=== PATIENT | female | born 1930 | race Caucasian/White ===

== ENCOUNTER 2016-12-11 21:02 | Inpatient (IN) | payer MEDICARE, BC ==
[2016-12-12] MEDS ORDERED: Docusate Sodium 100 MG Cap PO PRN (00:43)
[2016-12-12] MEDS ORDERED: Acetaminophen 325 MG Tab PO PRN (00:43)
[2016-12-12] MEDS ORDERED: Temazepam 15 MG Cap PO PRN (00:43)
[2016-12-12] MEDS ORDERED: Ondansetron 4 MG/2 ML SDV IV PRN (00:43)
[2016-12-12] MEDS ORDERED: Ondansetron 4 MG Tab.DIS PO PRN (00:43)
[2016-12-12] MEDS ORDERED: Ibuprofen 400 MG Tab PO PRN (00:43)
[2016-12-12] MEDS ORDERED: Levofloxacin/Dextrose 5%-Water 500 MG in Premix Bag 1 BAG IV SCH (01:00)
[2016-12-12] MEDS ORDERED: Sodium Chloride 0.9% 10 ML Syringe FLUSH PRN (02:24)
[2016-12-12] MEDS ORDERED: Sodium Chloride 0.9% 250 ML IV SCH (03:30)
[2016-12-12] MEDS: Enoxaparin 40 MG/0.4 ML Syringe SUBCUT SCH (09:43)
--- NOTE | 2016-12-12 10:47 | CR ---
INDICATION: Weakness, question infection in the lungs. CHEST: An AP portable upright view of the chest was obtained. Evidence of exogenous obesity is noted. The heart is enlarged. The current study is 12/12/2016. No comparisons are available. The aorta is tortuous and calcified. Dextroconcave scoliosis of moderate degree is noted in the mid thoracic spine with moderate hypertrophic degenerative changes off vertebral bodies. An active infiltrate or effusion was not identified. Lungs appear to be slightly hyperaerated. Linear density at the left lower lung field laterally may represent fibrotic strand or possibly linear atelectasis. Somewhat heavy markings at the medial lung bases, especially on the right make it difficult to exclude patchy bronchopneumonia. IMPRESSION: 1. No definite acute process, but difficult to exclude minimal patchy bronchopneumonia at the lung bases, especially at the right lung base. 2. ASHD with cardiomegaly. 3. Question the possibility of COPD. 4. Exogenous obesity. MTDD
[2016-12-12] MEDS: metFORMIN 500 MG Tab PO SCH ×2 (12:12→17:57)
[2016-12-12] MEDS ORDERED: Sodium Chloride 0.9% 1,000 ML IV SCH (12:45)
--- NOTE | 2016-12-12 14:06 | HP ---
ADMISSION DATE: 12/12/2016 CHIEF COMPLAINT: Fever, chills, marked weakness. HISTORY OF PRESENT ILLNESS: This patient is an 86-year-old female with a longstanding history of type 2 diabetes mellitus, currently without insulin therapy, complicated by chronic kidney disease, hypertension, obesity, and obstructive sleep apnea who was admitted after being seen in the emergency room with the above chief complaint. The patient states she was actually doing fairly well until last night when she was sitting in her chair and about 1900 hours, wanted to get out; she said she just could not get out of the chair. She says her legs were so weak, and she felt chilled and very warm. She called her daughter who went to check on her. They found her to be very weak and could barely stand. He got her to the car and brought her to the emergency room. She was found to be febrile with elevated white count and marked pyuria. She was too weak and somewhat dehydrated to go home. She was therefore admitted for more aggressive therapy. She says she has not had any previous problems with kidney infections, denies any fever, chills, night sweats. She has had no dysuria or hematuria. She has not noticed any increased urinary frequency or urgency. There has been no nausea, vomiting, or diarrhea. She has had no dysuria or hematuria. She said she recently finished an antibiotic in October for infection in her face, but has not been on any antibiotics recently. CURRENT MEDICATIONS: Include: 1. Glimepiride 4 mg daily. 2. Metformin 500 mg b.i.d. 3. Potassium chloride 20 mEq b.i.d. 4. Aspirin 81 mg daily. 5. Furosemide 40 mg every morning. 6. Allopurinol 300 mg daily. 7. Atorvastatin 20 mg daily. 8. She gets her CPAP on every night. 9. She is also on ferrous sulfate 325 mg daily. 10.She uses ketoconazole shampoo p.r.n. ALLERGIES: Latex, Neosporin, and adhesive tapes. SOCIAL HISTORY: She quit smoking approximately 30 years ago, but prior to that was smoking, maybe 20 years at a pack per day. Alcohol none. PAST MEDICAL HISTORY: Pertinent. In that, she has had previous appendectomy and cholecystectomy. She has had a previous pinning of her right femur for fracture and also has had right elbow fracture that required open reduction and internal fixation. She has the above-mentioned longstanding history of hypertension and type 2 diabetes. FAMILY HISTORY: Both parents . Mother lived to be quite elderly. Father, she does not remember, but he had complications of Parkinson disease. She had 1 brother who is still living, apparently is in fairly good health. REVIEW OF SYSTEMS: Negative except for that mentioned above; however, the patient does complain of decreased hearing bilaterally and wears hearing aids. She also complains of intermittent bilateral knee pain without effusion, erythema, warmth, or swelling. PHYSICAL EXAMINATION: VITAL SIGNS: At this time showed her to be afebrile. Exam at this time shows her temperature to be 99.2, blood pressure 140/78, pulse is 102 and regular, respirations are 18, O2 saturation is 92%. Weight is 246.4 pounds. Height is 5 feet 2 inches. GENERAL: Well-developed, obese female, who is otherwise in no acute distress. HEENT: Reveals the TMs to be clear, but she wears bilateral hearing aids. The pupils are round and react well to light and accommodation. Extraocular movements are intact. Sclerae and conjunctivae are clear. Nasal passages are open. No discharge is noted. Pharynx and palate are unremarkable except for dry mucous membrane with prominent tongue fissures. NECK: Supple. There is no jugular venous distention. Carotid pulses are strong and equal without bruits. Thyroid is not enlarged. BACK: Straight with no actual CVA or spinous process tenderness. CHEST: Reveals a few bibasilar crackles, but these did clear with cough. There are no retractions or tachypnea. CARDIOVASCULAR: Reveals a normal S1 and S2 with a soft systolic ejection murmur, heard best at the right upper sternal border. A regular rhythm was noted. ABDOMEN: Soft, obese, well-healed right upper paramedian scar and right lower quadrant scar, prominent umbilical hernia of approximately 1 to 2 cm was noted that was reducible. The breasts were without masses or tenderness. No nipple discharge. There is some erythema under both breasts, indicative of some monilial dermatitis. PELVIC: Not done. EXTREMITIES: Without clubbing, but she has just a trace edema about the ankles. She has some healing from stasis changes and old ulcers, especially along the medial aspect of the right lower extremity just proximal to the ankle, the left side is much less. The feet are warm to touch and with excellent peripheral pulses. No sensory deficits are noted in the feet. Fusiform swelling of both knees was noted without effusion, erythema, or warmth. LABORATORY DATA: Initial CBC revealed hemoglobin of 13.6, hematocrit of 40.4, P 1.7, white count of 13,200 with a left shift, platelets are 160,000. Her sodium was 135, potassium of 4.0, chloride was 98, CO2 was 28, creatinine 1.3, BUN of 20, random glucose was 209. Lactic acid was normal at 1.4, but her C-reactive protein was elevated at 17.2. BNP was minimally elevated at 107. She had a normal alkaline phosphatase. Slight elevation in AST and ALT at 30 and 28 respectively, and her bilirubin was 1.4, calcium was 9.3. Urinalysis showed a specific gravity of 1.010, pH is 7, 30 mg% of protein, 50 glucose, large amount of occult blood. She had a large amount of leukocyte esterase, 10 to 20 rbc's and a packed field of wbc's with many bacteria. Culture is pending. Chest x-ray revealed no acute process. No infiltrates were noted, except for maybe a little bit of stranding at the right base. Heart is enlarged, but it is difficult to tell if it was secondary to the AP projection. EKG was unremarkable. She was in sinus tachycardia with an incomplete left bundle branch block. No acute ST-segment changes were identified. IMPRESSION: 1. Cystitis with possible early pyelonephritis, rule out septicemia. 2. Type 2 diabetes mellitus, currently non insulin dependent. 3. Hypertension. 4. Obesity. 5. Obstructive sleep apnea. PLAN: The patient was admitted. Cultures have been obtained, and she was started on levofloxacin. We will probably switch her over to oral Cipro and monitor blood sugars closely. Hydrate with IV fluids. Get PT/OT involved. We will proceed from there. /[id number] WM/MODL
[2016-12-12] MEDS: Ciprofloxacin 500 MG Tab PO SCH (20:19)
[2016-12-13] MEDS: metFORMIN 500 MG Tab PO SCH ×2 (08:01→18:45)
[2016-12-13] MEDS: Enoxaparin 40 MG/0.4 ML Syringe SUBCUT SCH (08:02)
[2016-12-13] MEDS: Ciprofloxacin 500 MG Tab PO SCH ×2 (08:29→20:28)
--- NOTE | 2016-12-13 12:27 | PN ---
DATE SEEN: 12/13/2016 SUBJECTIVE: This is an 86-year-old female with a history of type 2 diabetes mellitus, obesity, hyperuricemia, and CHF, seen today for followup of her severe cystitis and possible septicemia. She says she is feeling better, slept well, has no dysuria or hematuria, denies any increased urinary frequency, or urgency and no further fevers have been noted. Her appetite is improving. She has had no other complaints or concerns. OBJECTIVE: VITAL SIGNS: Temperature is up slightly at 99.1 during the night, but this morning, it is down to 98.0; blood pressure earlier this morning was 121/66, now it is 139/106; pulse is 90 and regular; respirations are 20; O2 saturation on room air is 93%. HEENT: Otherwise unremarkable. CHEST: Clear. No CVA or spinous process tenderness was noted in her back. CARDIOVASCULAR: Reveals a normal S1, S2 without gallop or rub. ABDOMEN: Obese with a persistent umbilical hernia, but no tenderness, organomegaly, or masses. EXTREMITIES: Unremarkable without clubbing or edema. LABORATORY DATA: Her sodium is down slightly at 133, potassium 3.7, creatinine is improved to 1.2, BUN of 21, glucose this morning was 162. Urine culture grew out greater than 100,000 colonies of gram-negative rods. ID and sensitivity are pending. So far, blood cultures are negative. IMPRESSION: 1. Recent cystitis. 2. Type 2 diabetes mellitus. 3. Obesity. 4. Hyperuricemia. 5. Obstructive sleep apnea. PLAN: Continue her Cipro and await the results of identification and sensitivity on the urine culture. We will get a PT/OT consult to make sure she is stable at home and follow from there. /[id number] /RUBIAL
[2016-12-14 07:36] VITALS: BP 151/81
[2016-12-14] MEDS: metFORMIN 500 MG Tab PO SCH (07:37)
[2016-12-14] MEDS: Ciprofloxacin 500 MG Tab PO SCH (08:40)
[2016-12-14] MEDS: Enoxaparin 40 MG/0.4 ML Syringe SUBCUT SCH (08:41)
[2016-12-14] MEDS ORDERED: Losartan 50 MG Tab PO SCH (09:00)
--- NOTE | 2016-12-14 11:46 | PN ---
DATE SEEN: 12/14/2016 SUBJECTIVE: Suze is seen today for followup of her cystitis type 2 diabetes mellitus, obesity, obstructive sleep apnea, hypertension along with hyperuricemia. She continues to improve. She has no dysuria, no increased urinary frequency, and has remained afebrile. Appetite has returned to normal. She denies any nausea, vomiting, back pain, or other complaints. She has been up and about. PT/OT has looked at her, and both feel that she is doing well enough to go home without difficulties. OBJECTIVE: GENERAL: She appears to be comfortable, alert, and at this time in no acute distress. VITAL SIGNS: Afebrile. Blood pressure is 151/81, pulse is regular at 89 beats per minute, respirations are 20, O2 saturation on room air is 95%. HEENT: Unremarkable. NECK: There is no jugular venous distention. Thyroid is not enlarged. CHEST: Clear. CARDIOVASCULAR: Reveals a normal S1 and S2 with a regular rhythm. There is no gallop or rub. ABDOMEN: Quite obese, but otherwise negative. EXTREMITIES: Without clubbing. No edema. No ulcerations or areas of breakdown. LABORATORY DATA: Urine culture grew out E. coli, sensitive to everything. IMPRESSION: Urinary tract infection secondary to Escherichia coli with resultant fever and weakness, type 2 diabetes mellitus, morbid obesity, obstructive sleep apnea, hypertension, hyperuricemia. PLAN: Because of her persistent hypertension, I am going to add losartan 50 mg p.o. daily. She said she did develop a cough with an TERA inhibitor, but I am hoping this will eliminate that. This would also be appropriate for diabetes. Continue her Cipro 500 mg p.o. b.i.d. for 7 more days, and we will discharge her home. I would like to follow up in 10 days or so for repeat Panel-8 and urinalysis and recheck on her blood pressure. If there are problems or new symptoms noted, to let us know. Walking program and monitor her carbs closely to help with weight reduction would be also helpful. She will call if any new problems arise. /[id number] /RUBIAL
--- NOTE | 2016-12-15 02:51 | DISCH ---
DISCHARGE DATE: 12/14/2016 REASON FOR ADMISSION: This 86-year-old female with a history of type 2 diabetes mellitus, morbid obesity, obstructive sleep apnea using CPAP, and hyperuricemia was admitted with marked increase in weakness, fever, chills, and dysuria. She was found to have significant urinary tract infection with significant weakness and mild dehydration. They did not feel she was safe at home. She was admitted for more aggressive therapy. Please see a copy of the H and P for further details. HOSPITAL COURSE: The patient was admitted. Cultures were obtained. Started on levofloxacin IV along with IV fluids. Blood sugars were monitored. She initially had a white count of 13,200 with a hemoglobin of 13.6, little bit of left shift. Her creatinine was 1.3, BUN of 20, glucose was 209. Slight elevation in liver functions. C-reactive protein was up to 17.2. BNP was 107. Urinalysis revealed a packed-field wbc's with many bacteria. With the above- mentioned treatment, she improved nicely. Blood sugars remained in the mid 100s to low 200s and she was restarted back on her glimepiride along with metformin. Her electrolytes remained stable. Creatinine actually improved with a bit of hydration and urine culture eventually grew out E coli greater than 100,000 colonies. Blood pressure remained elevated, so we started her on losartan 50 mg p.o. daily as she apparently had a cough secondary to TERA inhibitors in the past and thus far, she has done well. She tolerated the oral medications well. Her culture proved to be sensitive to the ciprofloxacin and her energy level improved. Her weakness resolved and her appetite returned to normal. She will be discharged and followed as an outpatient. FINAL DIAGNOSIS: 1. Acute urinary tract infection secondary to Escherichia coli with resultant weakness and dehydration. 2. Type 2 diabetes mellitus. 3. Morbid obesity. 4. Obstructive sleep apnea, currently on CPAP. 5. Hypertension. 6. History of hyperuricemia. DISCHARGE MEDICATIONS: 1. Ciprofloxacin 500 mg b.i.d. for 7 days. 2. Losartan 50 mg p.o. daily. 3. Metformin 500 mg b.i.d. 4. Glimepiride 4 mg daily every morning. 5. Allopurinol 300 mg daily. 6. Aspirin 81 mg daily. 7. Furosemide 40 mg daily. 8. Potassium chloride 20 mEq b.i.d. 9. Multivitamin daily. 10.Atorvastatin 20 mg at bedtime. 11.Ferrous sulfate 325 mg daily. 12.Calcium carbonate with vitamin D 600/200 one tablet b.i.d. DISCHARGE DIET: ADA. DISCHARGE DISPOSITION: She was discharged in the care of her family. FOLLOWUP: Recommended with her regular physician in 10 days for a repeat urinalysis, panel-8. If there are other problems or any concerns let us know. /[id number] /LEVI
--- NOTE | 2016-12-15 14:31 | ER ---
DATE SEEN: 12/11/2016 CHIEF COMPLAINT: This is an 86-year-old woman with chief complaint of weakness, unable to get out of the chair. HISTORY OF PRESENT ILLNESS: The patient is attended by her daughter and son-in- law. She has had a similar history of difficulty getting out of the chair in the last 3 to 4 weeks, but it is increasingly worse. Today, she could not get out of the chair. She had been sitting for a short period of time. No previous fractures. She has had a bad right hip fracture and left shoulder. No history of recent falls. Status post appendectomy, cholecystectomy, right femur fracture. She is edentulous. Right elbow fracture. She is overweight. She continues to use enoxaparin because she has problems with DVTs. She is diabetic, uses oral hypoglycemics and has gout and mild congestive heart failure with oral hypoglycemics, metformin, and glimepiride. MEDICATIONS: 1. Zinc. 2. Vitamin E. 3. Iron sulfate. 4. Vitamins. 5. Aspirin. 6. Calcium carbonate. 7. Ketoconazole cream. 8. Glimepiride 4 mg with breakfast. 9. Atorvastatin 20 mg daily. 10.Potassium chloride. 11.Lasix 40 mg daily. 12.Allopurinol 300 mg daily. 13.Metformin 500 mg b.i.d. ALLERGIES: None. ADDITIONAL HISTORY: The patient is a fair historian. Most information was gleaned from her daughter. She notes that her legs have been weak and colder than usual. CURRENT MEDICATIONS: As noted above: 1. Atorvastatin. 2. Allopurinol. 3. Aspirin. 4. Potassium chloride. 5. Lasix. 6. Glimepiride. 7. Metformin. 8. Iron sulfate. 9. Ketoconazole shampoo. She has had history of hypertension and diabetes and presbycusis. Intermittent leg pain. PHYSICAL EXAMINATION: VITAL SIGNS: Blood pressure 140/48. Heart rate 90. Respirations 18. Oxygen saturation 92. GENERAL: An alert woman who is markedly obese, and who is appropriate to answer. HEENT: PERRLA intact. Pharynx without abnormality. No thyromegaly or masses. NECK: No cervical adenopathy or bruits. LUNGS: Without rales or rhonchi, but there are some coarse breath sounds at posterior bases. HEART: S1, S2. No murmur. Sinus tachycardia. ABDOMEN: Soft. No guarding. No abdominal discomfort. Abdominal scars noted. No rebound. No CVA percussion tenderness. Mild suprapubic discomfort. EXTREMITIES: With trace pedal edema. Mild vascular insufficiency of lower extremities. Dorsalis pedis intact. LABORATORY FINDINGS: White count 13,200, PMNs 79, lymphocytes 10, hemoglobin 13.6, platelets 160,000. Sodium 135, potassium 4.0, chloride 98, bicarb 28, BUN 20, creatinine 1.3. GFR estimated at 39. [id number] glucose 189, glucose by our lab 209. Total bilirubin 1.4, AST 30, ALT 28. Troponin 0.01 and elevated C- reactive protein at 17.2. Urinalysis, many bacteria. ASSESSMENT: Urinary tract infection. The patient is flushed. Mild evidence for sepsis. She had micro hematuria 10/20, packed WBCs, Large occult, and no ketones. ASSESSMENT OF EKG: Sinus tachycardia, incomplete left bundle branch block, borderline ST elevation of V1, V2, V3, unchanged from before, slight ST depression in V5, V6. ASSESSMENT: 1. Sinus tachycardia secondary to febrile response to urinary tract infection. Urine culture pending. 2. Obesity. 3. Possible lung infection. Question-might be an infiltrate. 4. Elevated C-reactive protein. 5. Previous abdominal surgery, cholecystectomy and appendectomy. 6. Right femur fracture, right elbow fracture, edentulous. 7. Mild liver enzyme elevation. Etiology indeterminate. Doubt could be hepatitis, but it is just indeterminate. 8. Leukocytosis. PLAN: Admit. Start Levaquin IV. Normal saline flush. Blood cultures pending. Urine culture pending. The patient was seen at 1005 hours. /[id number] ROSAURA/LEVI
== END 2016-12-14 10:45 | disposition home or self-care (01) | DRG 690 ==
LOC: FB.ED 21:02 → FB.MS 12-12 00:43 → UNDOADMIN 12-12 00:43 → FB.ED 12-12 02:00 → FB.MS 12-12 02:12 → UNDODISIN 12-14 10:45
PROVIDERS: ADMIT Emergency Medicine; ATTEND Family Medicine
DX: N39.0 Urinary tract infection, site not specified (principal); N30.90 Cystitis, unspecified without hematuria; B96.20 Unspecified Escherichia coli [E. coli] as the cause of diseases classified elsewhere; E11.9 Type 2 diabetes mellitus without complications; G47.30 Sleep apnea, unspecified; E66.9 Obesity, unspecified; E79.0 Hyperuricemia without signs of inflammatory arthritis and tophaceous disease; N18.9 Chronic kidney disease, unspecified; Z79.84 Long term (current) use of oral hypoglycemic drugs; Z87.891 Personal history of nicotine dependence; Z87.81 Personal history of (healed) traumatic fracture; I12.9 Hypertensive chronic kidney disease with stage 1 through stage 4 chronic kidney disease, or unspecified chronic kidney disease
CPT/HCPCS: 36415; 71010; 80048; 80053; 81001; 82272; 82962; 83605; 83880; 84443; 84484; 85025; 85379; 86140; 87040; 87086; 87088; 87186; 93005; 97161-GP; 97165-GO; 99284; 99285; A4217; A9270-GY; J1650; J1956; J7050